=== PATIENT | female | born 1970 | race Caucasian/White ===

== ENCOUNTER 2024-10-18 12:17 | Inpatient (IN) | payer MEDICAID, SELFPAY ==
[2024-10-18 12:30] VITALS: BP 115/78; PULSE 100; RESP 20; TEMP 37; O2SAT 98; BMI 22.4
[2024-10-18 12:59] LABS: Basophils # 0.1 10^3/uL (0.0-0.1); Basophils % 0.8 %; Eosinophils # 0.3 10^3/uL (0.0-0.8); Eosinophils % 5.1 %; Hematocrit 42.9 % (36-47); Lymphocytes # 2.7 10^3/uL (0.8-4.8); Lymphocytes % 44.6 %; Mean Corpuscular Hemoglobin 31.1 pg (27-33); Mean Corpuscular Volume 91.5 fl (85-98); Mean Platelet Volume 8.9 fL (7.4-10.4); Monocytes # 0.5 10^3/uL (0.2-0.9); Monocytes % 8.7 %; Neutrophils # 2.46 10^3/uL (1.8-7.7); Neutrophils % 40.5 %; Nucleated Red Blood Cells % 0 %; Platelet Count 203 10^3/cmm (157-399); Red Blood Count 4.69 10^6/uL (3.85-5.65); Red Cell Distribution Width 13.6 % (12.1-15.1); White Blood Count 6.08 10^3/uL (3.29-11.43)
[2024-10-18 13:18] LABS: Bilirubin Urine Negative (Negative); Blood Urine Negative (Negative); Glucose Urine UA Negative (Normal); Ketones Urine Negative (Negative); Leukocyte Esterase Urine Negative (Negative); Nitrate Urine Negative (Negative); Protein Urine Negative (Negative); Specific Gravity, Urine 1.004 (1.005-1.030); Urine Appearance Clear (CLEAR); Urine Color Yellow (Yellow); Urobilinogen Urine 0.2 mg/dL (Negative); pH Urine 5.5 (5-7)
[2024-10-18 13:23] LABS: Add Urine Microscopic? YES; Bacteria Urine None Seen /hpf; Hyaline Casts Urine 0-4 /lpf; RBC Urine 0-2 /hpf (0-2); Squamous Epithelial Cell Urine 0-5 /hpf (0-5); WBC Urine 0-5 /hpf (0-5)
[2024-10-18 13:24] LABS: Amphetamines Screen Urine Negative (Negative); Barbiturates Screen Urine Negative (Negative); Benzodiazepines Screen Urine Negative (Negative); Cocaine Screen Urine Negative (Negative); Opiate Screen Urine Negative (Negative); PCP Screen Urine Negative (Negative); THC Screen Urine Negative (Negative)
[2024-10-18 13:35] LABS: Alanine Aminotransferase 20 U/L (0-33); Albumin Level 4.4 g/dL (3.5-5.2); Alkaline Phosphatase 122 U/L (35-105); Aspartate Amino Transferase 16 U/L (0-32); Blood Urea Nitrogen 14 mg/dL (6-20); Calcium 9.9 mg/dL (8.5-10.5); Carbon Dioxide 23 mmol/L (22-29); Chloride 104 mmol/L (98-107); Creatinine Clr Calc Pharmacy 100.4882; Globulin 2.7 g/dL (1.3-4.6); Glomerular Filtration Rate 103.4 mL/min (90-130); Glucose 91 mg/dL (65-115); Osmolality Calculated 288 mOsm/kg (285-295); Sodium 139 mmol/L (136-145); Thyroid Stimulating Hormone 1.77 uIU/mL (0.27-4.20); Total Bilirubin 0.2 mg/dL (0.15-1.2); Total Protein 7.1 g/dL (6.6-8.7)
[2024-10-18 13:36] LABS: Acetaminophen < 5.0 ug/mL (10-30); Anion Gap 16.2 (5-19); Potassium 4.2 mmol/L (3.5-5.1); Salicylate < 0.3 mg/dL (3-10)
[2024-10-18 13:42] LABS: Add Urine Culture? No
[2024-10-18] MEDS: diphenhydrAMINE 50 mg/mL SDV 1mL IM (14:00)
[2024-10-18] MEDS: haloperidol inj 5 mg/mL INJ 1 mL IM (14:00)
--- NOTE | 2024-10-18 14:00 | PC.NURSE ---
Ativan administrations delayed d/t insufficient amount in Pyxis, pharmacy notified @[id number]
--- NOTE | 2024-10-18 14:01 | PC.PHAR ---
Patient states she was on other medication at her old Pharmacy and it worked well for her . 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 [facility] did state the only thing different she had was in March 2024 patient was prescribed Vraylar 3mg . Patient only had it the one time , No other fills for it
--- NOTE | 2024-10-18 14:07 | PC.PHAR ---
Patient states that sometimes she smokes a joint . That is isn't legal yet so she doesn't want to say she does,
--- NOTE | 2024-10-18 14:16 | W.ED.PSYCHS ---
HPI - Psych General: Chief Complaint: Psychiatric Symptoms Stated Complaint: visual/auditory hallucinations Time Seen by Provider: 10/18/24 12:29 History of Present Illness: This patient is a 54-year-old white female who presents to the emergency department stating that she has been hallucinating. She states she has been seeing things that are not there. She has also been hearing things. She states she has had thoughts of harming herself. She states she does have a history of schizophrenia, depression and anxiety. She is not sure if she has been taking her medications. Associated symptoms: Reports auditory hallucinations, visual hallucinations, depression and suicidal ideation Related Data Home Medications ?Medication ?Instructions ?Recorded ?Confirmed acetaminophen 500 mg tablet 1,500 mg PO Q6H PRN Fever Or Pain 10/18/24 10/18/24 (Tylenol Extra Strength) hydroxyzine HCl 25 mg tablet 25 mg PO TID PRN Anxiety 10/18/24 10/18/24 levothyroxine 50 mcg tablet 50 mcg PO QAM 10/18/24 10/18/24 olanzapine 15 mg tablet 15 mg PO BEDTIME 10/18/24 10/18/24 zolpidem 5 mg tablet 5 mg PO BEDTIME PRN Insomnia 10/18/24 10/18/24 Allergies Allergy/AdvReac Type Severity Reaction Status Date / Time amoxicillin Allergy Severe ALGY-Difficulty Verified 10/18/24 12:46 Breathing Review of Systems General: Reports: 10 or more systems reviewed and unremarkable except in HPI and below Psych: Reports: anxiety, depression, paranoia, visual hallucinations, auditory hallucinations and suicidal ideation Physical Exam Const: COMMON NORMALS: no acute distress, patient oriented x3 and no limitations GENERAL APPEARANCE: cooperative and comfortable HENMT: COMMON NORMALS: normocephalic, atraumatic, Normal nasal mucous membranes and turbinates present, moist oral mucous membranes and oropharynx normal HEAD & SCALP: normal to inspection, normocephalic and atraumatic FACE & SINUS: normal facial exam NOSE: Normal nasal mucous membranes and turbinates present Eye: COMMON NORMALS: Equal, round and reactive pupils present, EOMs intact bilaterally and conjunctivae normal GENERAL EYE: appearance normal, both eyes and all related structures CONJUNCTIVA: Yes conjunctivae normal PUPIL: Yes Equal, round and reactive pupils present Neck/C-Spine: COMMON NORMALS: supple and no JVD Chest: COMMONS NORMALS: normal inspection of the chest Resp: COMMON NORMALS: normal respiratory effort and clear to auscultation bilaterally AUSCULTATION: clear to auscultation bilaterally Cardio: COMMON NORMALS: no JVD, regular rate, regular rhythm, No gallops present (Cardio), No murmurs present (Cardio) and No rub (Cardio) RATE: regular rate RHYTHM: regular rhythm GI: COMMON NORMALS: Normal to inspection, nondistended, normoactive bowel sounds present, Soft to palpation and non-tender AUSCULTATION: Yes normoactive bowel sounds PALPATION: Yes Soft to palpation : COMMON NORMALS: Yes no CVA tenderness BLADDER/KIDNEY EXAM: Yes no CVA tenderness Back/Pelvis: COMMON NORMALS: no CVA tenderness and thoracic and lumbar spine normal to inspection Extremity: COMMON NORMALS: normal to inspection Neuro: COMMON NORMALS: patient oriented x3 and CN's II-XII intact bilaterally Psych: COMMON NORMALS: cooperative and speech normal APPEARANCE: Yes grossly normal ATTITUDE: Yes paranoid and Yes Guarded attititude/behavior present ACTIVITY/MOTOR BEHAVIOR: Yes Avoids eye contact (attititude/behavior) SPEECH: Yes normal speech MOOD & AFFECT: Yes anxious and Yes irritable ATTENTION/CONCENTRATION: Yes attention grossly intact MEMORY/COGNITION: Yes memory grossly intact Skin: COMMON NORMALS: no rashes or lesions noted, turgor normal and no jaundice GENERAL SKIN EXAM: no rashes or lesions noted and turgor normal Course Vital Signs: Vital signs: Vital Signs Temperature 98.6 F 10/18/24 12:30 Pulse Rate 100 10/18/24 12:30 Respiratory Rate 20 H 10/18/24 12:30 Blood Pressure 115/78 10/18/24 12:30 Pulse Oximetry 98 10/18/24 12:30 Oxygen Delivery Me thod Room Air 10/18/24 12:30 MDM - Psych Medical Decision Making CBC and CMP were normal. TSH 1.77. Urinalysis normal. Urine drug screen negative. Talk screen negative. Patient will need to be admitted to the psychiatric unit since she is currently psychotic. She has likely been off of her antipsychotic medications. I discussed the case with Dr. Owusu, psychiatrist. He has accepted the patient for admission. She will be sent to the Neuropsych Unit shortly. She is stable. Lab Data 10/18/24 12:54 10/18/24 12:54 Laboratory Results WBC 6.08 10^3/uL (3.29-11.43) 10/18/24 12:54 RBC 4.69 10^6/uL (3.85-5.65) 10/18/24 12:54 Hgb 14.60 g/dL (11.27-16.99) 10/18/24 12:54 Hct 42.9 % (36-47) 10/18/24 12:54 MCV 91.5 fl (85-98) 10/18/24 12:54 MCH 31.1 pg (27-33) 10/18/24 12:54 MCHC 34.0 g/dL (30-55) 10/18/24 12:54 RDW 13.6 % (12.1-15.1) 10/18/24 12:54 Plt Count 203 10^3/cmm (157-399) 10/18/24 12:54 MPV 8.9 fL (7.4-10.4) 10/18/24 12:54 Neut % (Auto) 40.5 % 10/18/24 12:54 Lymph % (Auto) 44.6 % 10/18/24 12:54 [place] % (Auto) 8.7 % 10/18/24 12:54 Eos % (Auto) 5.1 % 10/18/24 12:54 Baso % (Auto) 0.8 % 10/18/24 12:54 Neut # (Auto) 2.46 10^3/uL (1.8-7.7) 10/18/24 12:54 Lymph # (Auto) 2.7 10^3/uL (0.8-4.8) 10/18/24 12:54 [place] # (Auto) 0.5 10^3/uL (0.2-0.9) 10/18/24 12:54 Eos # (Auto) 0.3 10^3/uL (0.0-0.8) 10/18/24 12:54 Baso # (Auto) 0.1 10^3/uL (0.0-0.1) 10/18/24 12:54 Nucleated RBC % (auto) 0 % 10/18/24 12:54 Nucleated RBCs # 0.0 /100WBC 10/18/24 12:54 Sodium 139 mmol/L (136-145) 10/18/24 12:54 Potassium 4.2 mmol/L (3.5-5.1) 10/18/24 12:54 Chloride 104 mmol/L (98-107) 10/18/24 12:54 Carbon Dioxide 23 mmol/L (22-29) 10/18/24 12:54 Anion Gap 16.2 (5-19) 10/18/24 12:54 BUN 14 mg/dL (6-20) 10/18/24 12:54 Creatinine 0.6 mg/dL (0.5-0.9) 10/18/24 12:54 GFR Calculation 103.4 mL/min (90-130) 10/18/24 12:54 Glucose 91 mg/dL (65-115) 10/18/24 12:54 Calculated Osmolality 288 mOsm/kg (285-295) 10/18/24 12:54 Calcium 9.9 mg/dL (8.5-10.5) 10/18/24 12:54 Total Bilirubin 0.2 mg/dL (0.15-1.2) 10/18/24 12:54 AST 16 U/L (0-32) 10/18/24 12:54 ALT 20 U/L (0-33) 10/18/24 12:54 Alkaline Phosphatase 122 U/L (35-105) H 10/18/24 12:54 Total Protein 7.1 g/dL (6.6-8.7) 10/18/24 12:54 Albumin 4.4 g/dL (3.5-5.2) 10/18/24 12:54 Globulin 2.7 g/dL (1.3-4.6) 10/18/24 12:54 TSH 1.77 uIU/mL (0.27-4.20) 10/18/24 12:54 Urine Color Yellow (Yellow) 10/18/24 13:00 Urine Appearance Clear (CLEAR) 10/18/24 13:00 Urine pH 5.5 (5-7) 10/18/24 13:00 Ur Specific [place] 1.004 (1.005-1.030) L 10/18/24 13:00 Urine Protein Negative (Negative) 10/18/24 13:00 Urine Glucose (UA) Negative (Normal) 10/18/24 13:00 Urine Ketones Negative (Negative) 10/18/24 13:00 Urine Blood Negative (Negative) 10/18/24 13:00 Urine Nitrate Negative (Negative) 10/18/24 13:00 Urine Bilirubin Negative (Negative) 10/18/24 13:00 Urine Urobilinogen 0.2 mg/dL (Negative) 10/18/24 13:00 Ur Leukocyte Esterase Negative (Negative) 10/18/24 13:00 Urine RBC 0-2 /hpf (0-2) 10/18/24 13:00 Urine WBC 0-5 /hpf (0-5) 10/18/24 13:00 Ur Squamous Epith Cells 0-5 /hpf (0-5) 10/18/24 13:00 Amorphous Sediment Not Reportable 10/18/24 13:00 Urine Bacteria None seen /hpf (NONE) 10/18/24 13:00 Hyaline Casts 0-4 /lpf H 10/18/24 13:00 Salicylates < 0.3 mg/dL (3-10) L 10/18/24 12:54 Urine Opiates Screen Negative ng/mL (Negative) 10/18/24 13:00 Acetaminophen < 5.0 ug/mL (10-30) L 10/18/24 12:54 Ur Barbiturates Screen Negative ng/mL (Negative) 10/18/24 13:00 Ur Phencyclidine Scrn Negative ng/mL (Negative) 10/18/24 13:00 Ur Amphetamines Screen Negative ng/mL (Negative) 10/18/24 13:00 U Benzodiazepines Scrn Negative ng/mL (Negative) 10/18/24 13:00 Urine Cocaine Screen Negative ng/mL (Negative) 10/18/24 13:00 U Marijuana (THC) Screen Negative ng/mL (Negative) 10/18/24 13:00 No radiology studies performed this visit Discharge Plan Discharge Patient Disposition: Admitted As Inpatient Clinical Impression: Acute psychosis, Chronic schizophrenia Condition: Stable Coding Level of Care Code ED [employer] [employer]
[2024-10-18] MEDS: LORazepam 1 MG/0.5 ML injection 2 MG IM (14:20)
[2024-10-18 14:59] VITALS: BP 118/78; PULSE 88; O2SAT 98
--- NOTE | 2024-10-18 15:12 | PC.NURSE ---
IV removed prior to transport to NPU
[2024-10-18 15:25] VITALS: BP 134/87; PULSE 88; RESP 16; TEMP 36.8; O2SAT 95
--- NOTE | 2024-10-18 15:49 | PC.ADMIT ---
[address] Admission Note: The patient,Sadie Gasca,54 y/o, was given written information regarding hospital policies, unit procedures and contact persons. Patient's smoking status: . Vital Signs - 8 hr 10/18/24 12:30 10/18/24 14:59 10/18/24 15:25 Temperature 98.6 F 98.3 F Pulse Rate 100 88 88 Respiratory Rate 20 H 16 Blood Pressure 115/78 118/78 134/87 Pulse Oximetry 98 98 95 Oxygen Delivery Method Room Air Room Air 10/18/24 15:30 Temperature Pulse Rate Respiratory Rate Blood Pressure Pulse Oximetry Oxygen Delivery Method Room Air Pt. came into ER reporting visual and auditory hallucinations. Pt. says she has had Schizophrenia since the age of 10, but denies in or out pt. phych tx. Pt. states she rents the upstairs from her brother. Pt. states both parents was alcoholics. States she had 2 brothers commit suicide about 9 months ago. Pt. is admitted on voluntary admission.
[2024-10-18 19:44] VITALS: BP 109/73; PULSE 92; RESP 18; TEMP 36.6; O2SAT 94
[2024-10-18] MEDS: OLANZapine 10 mg TABLET 15 MG PO (22:06)
[2024-10-19] MEDS: levothyroxine 50 mcg Tablet PO (05:55)
[2024-10-19] MEDS: nicotine 21 mg Patch 1 PATCH TRANSDERMA (06:12)
[2024-10-19 06:31] VITALS: BP 91/66; PULSE 63; RESP 18; TEMP 36.6; O2SAT 94
[2024-10-19] MEDS: hyDROXYzine 25 mg Capsule 50 MG PO ×2 (10:53→19:00)
[2024-10-19] MEDS: OLANZapine 5 mg ODT PO ×2 (11:56→20:21)
[2024-10-19 14:00] VITALS: BP 104/72; PULSE 104; RESP 16; TEMP 36.6; O2SAT 99
--- NOTE | 2024-10-19 15:12 | W.PM.NPUH&PS ---
Providers/Chief Complaint Admitting Physician: Juan M Hubbard MD Chief Complaint: visual/auditory hallucinations HPI NPU History of Present Illness Sadie Gasca is a 54 year old female who arrives here today on the neuropsychiatric unit after presenting to the emergency department stating that she has been hearing voices that are telling her to harm herself. She reports that she has been diagnosed with schizophrenia and reports that she has had problems with auditory hallucinations for the past 40 years. She reports that she had not been on medications until approximately 2 to 3 days ago with medications being prescribed for many years prior to that time. She reports that she has been having racing thoughts and increased depression. She reports that she has been overwhelmed by these voices. She reports that she often feels as if others can read her mind. She reports that she has been here in [place] for the past month as she moved from [place] to help her brother who had been recently injured and needed additional support in the home. She reports that she has been on disability for her schizophrenia for the past 4 years and reported that she had a significant breakdown after the of her brother and 3 months later her mother. She endorses a prior history of manic episodes with reports of decreased need for sleep, racing thoughts, increased irritability and reports of increased goal-directed behavior. She reports that her thoughts have been racing more frequently. She had reported having a good response to lithium for many years stating that she was able-bodied and able to work while taking lithium until 2021. She was uncertain as to why that medicine was discontinued as she reported no significant side effect leading to its discontinuation. She reports that she has been crying more frequently and reported that the voices have been loud and prominent telling her to harm herself. She denies any illicit substance use or alcohol abuse currently. She does report having problems with memory and concentration. She endorses having considerable anxiety and states that her anxiety has been more prominent with the increased intensity and frequency of her auditory hallucinations. She reports that she has not been able to sleep for several days despite taking her Ambien. She reports that her thoughts are moving fast. She denied any PTSD symptoms. She denied any symptoms suggestive of obsessive-compulsive disorder. The patient had reported that she had been seen at urgent care clinic in [facility] through [facility] and had been prescribed her most recent medication regimen. Inpatient psychiatric history: She has a history of multiple inpatient hospitalizations she states beginning at the age of 10. She had endorsed a history of suicidal ideation. Outpatient psychiatric history: She reported to follow-up with a psychiatrist at [facility] in [place] for more than 10 years. She had reported a previous diagnosis of schizophrenia and anxiety. She was able to recall previous medication of lithium and Seroquel. She had reported no current psychotherapy and reports that she has not receiving any outpatient follow-up with a psychiatrist. Substance abuse history: She had reported a past history of polysubstance abuse but reports that she has not used any drugs or alcohol in several years. She had reported no history of inpatient or outpatient substance abuse treatment. Medical history: Hypothyroidism Surgical history: , tonsillectomy, right hip surgery, hysterectomy Allergies: Amoxicillin Medications: Levothyroxine 50 mcg daily, olanzapine 15 mg at night, Ambien 5 mg at night, hydroxyzine 25 mg 3 times a day Legal history: None Family psychiatric history: History of 3 completed suicides, history of alcoholism in both mother and father, history of methamphetamine abuse and sibling, history of depression in siblings. history: None Social history: She had reported no history of problems with learning. She had eventually earned her diploma and she had been born in [place] and grew up in [place]. She had reported having a turbulent childhood but did not wish to discuss any prior trauma history. She reported having been placed in foster care for a time period and states that she has 6 total siblings with 2 brothers that are . She had reported that she has not been but has several children who are all of adult age living independently in [place]. 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 She currently lives near [facility]. She is staying with her brother who resides with her. Meds NPU Home Medications ?Medication ?Instructions ?Recorded ?Confirmed ?Last Taken ?Type acetaminophen 500 mg tablet 1,500 mg PO Q6H PRN Fever Or Pain 10/18/24 10/18/24 10/17/24 21:00 History (Tylenol Extra Strength) hydroxyzine HCl 25 mg tablet 25 mg PO TID PRN Anxiety 10/18/24 10/18/24 10/17/24 20:00 History levothyroxine 50 mcg tablet 50 mcg PO QAM 10/18/24 10/18/24 10/17/24 20:00 History olanzapine 15 mg tablet 15 mg PO BEDTIME 10/18/24 10/18/24 Unknown History zolpidem 5 mg tablet 5 mg PO BEDTIME PRN Insomnia 10/18/24 10/18/24 10/15/24 History Allergies Allergy/AdvReac Type Severity Reaction Status Date / Time amoxicillin Allergy Severe ALGY-Difficulty Verified 10/18/24 12:46 Breathing Mental Status Exam MSE Comments: The patient appeared her stated age with a disheveled appearance and normal gait. She had intermittent eye contact and appeared in severe distress. She was tearful throughout the interview. Speech was increased in push, and normal in volume and spontaneity. There was no evidence of any abnormal involuntary motor movements, tics, or tremors appreciated. She appeared very distracted during the interview. Her mood was described as terrible. Her affect was dysphoric and mood-congruent. Her thought process was linear, logical, and goal-directed. She denied any suicidal or homicidal ideation although she reported that there was a voice that was telling her to hurt herself. She did at times appear to be responding to internal stimuli. There was some ideas of reference although no overt delusions were appreciated. She was alert and oriented to person and place but not date. Her recent and remote memory appeared grossly intact. Her insight is impaired. Her judgment was poor. Her impulse control appeared limited. Vitals/I&O/Wt Last Vital Signs Temp 97.9 F 10/19/24 06:31 Pulse 63 10/19/24 06:31 Resp 18 10/19/24 06:31 BP 91/66 10/19/24 06:31 Pulse Ox 94 10/19/24 06:31 O2 Del Method Room Air 10/18/24 15:30 Weight last 48 hrs Weight 63.049 kg Data NPU 10/18/24 12:54 10/18/24 12:54 A&P Assessment and plan (1) Schizoaffective disorder, bipolar type: (2) Chronic schizophrenia: Plan 54-year-old female with a history of chronic mental illness with a history of what appears to be schizoaffective disorder bipolar type although she is reporting schizophrenia currently reporting a lack of success with her medication regimen. Presence of hallucinations appear to be most disturbing to patient and she was willing to consider medications to target her mood symptoms as well as psychosis. #1.? Engage patient in individual milieu and group therapy. #2?? Recommend sober living treatment at the highest level of care to which the patient is willing to commit #3???Restart Synthroid, #4?? TO-15 minute checks? #5?? Will attempt to gather collateral information, including records from [facility]. Start [place] 150mg bid, and initiate Invega 3mg at night to target psychosis. Klonopin 1mg at night for sleep. PDMP PDMP Reviewed: Not Reviewed Involuntary Hold Information Hold Status: Date/Time Hold Expires: voluntary Attestations NPU Medical Necessity Statement*: Inpatient hospitalization is medically necessary and deemed to be the clinically appropriate intervention at this time. Medications will be adjusted and initiated as indicated.? The patient will be hospitalized for at least 2 midnights.? The patient?s likely length of stay is 4-6 days. ? Coding Level of Care Code Acute Code for [facility] Fwd Diagnoses Schizoaffective disorder, bipolar type F25.0 Chronic schizophrenia F20.9
--- NOTE | 2024-10-19 18:32 | PC.NURSE ---
PT CONTINUES TO WANT TO LEAVE, INFORMED DOCTOR, WHO FEELS PT IS NOT READY OR SAFE TO GO HOME AT THIS TIME. PT CONTINUES TO BE VERY ANXIOUS AND WITHDRAWN TO ROOM. DOCTOR INITIATING 96HOUR HOLD FOR PT SAFETY. INFORMED PT DAUGHTER NURY HERNÁNDEZ OF 96 HOUR HOLD BEING PLACED SHE WAS VERY THANKFUL FOR THAT. PT DAUGHTER STATES PT IS AN EX ADDICT WHO DRUG OF CHOICE BEING AMBIEN AND OPIOIDS.
[2024-10-19] MEDS: lithium carbonate 300 mg Capsule PO (18:54)
--- NOTE | 2024-10-19 19:21 | PC.NURSE ---
Pt was read her rights at this time. Security was present.
[2024-10-19] MEDS: paliperidone ER 3 mg Tablet PO (20:21)
[2024-10-19] MEDS: trazodone 50 mg Tablet PO (20:33)
[2024-10-19 20:40] VITALS: BP 124/76; PULSE 114; RESP 17; TEMP 36.7; O2SAT 98
[2024-10-20] MEDS: nicotine 2 mg Gum BUCCAL (01:11)
[2024-10-20 06:00] VITALS: BP 99/68; PULSE 109; RESP 17; TEMP 36.7; O2SAT 98
[2024-10-20] MEDS: nicotine 21 mg Patch 1 PATCH TRANSDERMA (08:50)
[2024-10-20] MEDS: hyDROXYzine 25 mg Capsule 50 MG PO (08:50)
[2024-10-20] MEDS: lithium carbonate 300 mg Capsule PO ×2 (08:51→17:40)
[2024-10-20] MEDS: OLANZapine 5 mg ODT PO (10:50)
--- NOTE | 2024-10-20 13:50 | P.NPUPN_ITS ---
Subjective NPU 2 Subjective: 54-year-old female with schizoaffective disorder admitted with presence of command auditory hallucinations. Patient had reported that she had felt a little better but reported that she was having difficulties with falling asleep last night. She had requested being switched back to Ambien. She had reported that she had been stable for nearly the last 1-1/2 years on Lybalvi. She had stated that this medication had not been authorized here in [place] and she was unable to continue this medication. The patient had been somewhat isolative on the milieu. She had continued to report that the voices were distracting to her and continued to state that she should kill herself. She continued to report that the voices were loud but reported that they were less frequent. Mental Status Exam 2 MSE Comments: The patient appeared her stated age with a disheveled appearance and normal gait. She had intermittent eye contact and appeared in moderate distress. Speech was normal in rate today and normal in volume and spontaneity. There was no evidence of any abnormal involuntary motor movements, tics, or tremors appreciated. She appeared less distracted during the interview. Her mood was described as a little better. Her affect was irritable and mood incongruent. Her thought process was linear, logical, and goal-directed. She denied any suicidal or homicidal ideation although she reported that there was a voice that was telling her to hurt herself. She did appear to be responding to internal stimuli. There was some ideas of reference although no overt delusions were appreciated. She was alert and oriented to person and place but not date. Her recent and remote memory appeared grossly intact. Her insight is impaired. Her judgment was poor. Her impulse control appeared limited. Vitals/I&O/Wt Last Vital Signs Temp 98.0 F 10/20/24 06:00 Pulse 109 H 10/20/24 06:00 Resp 17 10/20/24 06:00 BP 99/68 10/20/24 06:00 Pulse Ox 98 10/20/24 06:00 O2 Del Method Room Air 10/20/24 06:00 Data NPU 10/18/24 12:54 10/18/24 12:54 A&P Assessment and plan (1) Schizoaffective disorder, bipolar type: (2) Chronic schizophrenia: Plan 54-year-old female with a history of chronic mental illness with a history of what appears to be schizoaffective disorder bipolar type although she is reporting schizophrenia currently reporting a lack of success with her medication regimen. Presence of hallucinations appear to be most disturbing to patient and she was willing to consider medications to target her mood symptoms as well as psychosis. #1.? Engage patient in individual milieu and group therapy. #2?? Recommend sober living treatment at the highest level of care to which the patient is willing to commit #3???Restart Synthroid, #4?? TO-15 minute checks? #5?? Will attempt to gather collateral information, including records from [facility]. Continue lithium 300mg bid, and increase Invega 6mg at night to target psychosis. D/C Klonopin 1mg at night and restart ambien 5mg at patient's request for sleep. PDMP PDMP Reviewed: Not Reviewed Involuntary Hold Information 2 Hold Status: Date/Time Hold Expires: voluntary Attestations NPU 2 Medical Necessity Statement*: Inpatient hospitalization is medically necessary and deemed to be the clinically appropriate intervention at this time. Medications will be adjusted and initiated as indicated.? ? The patient?s likely length of stay is 4-6 days. ? Coding Level of Care Code Acute Code for [facility] Fwd Diagnoses Schizoaffective disorder, bipolar type F25.0 Chronic schizophrenia F20.9
[2024-10-20 14:00] VITALS: BP 158/90; PULSE 95; RESP 16; TEMP 36.8; O2SAT 98
[2024-10-20] MEDS: paliperidone ER 3 mg Tablet 6 MG PO (19:33)
[2024-10-20] MEDS: levothyroxine 50 mcg Tablet PO (19:34)
[2024-10-20 19:35] LABS: Glucose Point of Care 121 mg/dL (70-110)
[2024-10-20] MEDS: acetaminophen 325 mg Tablet 650 MG PO (20:00)
--- NOTE | 2024-10-20 20:09 | PC.NURSE ---
Patient with c/o feeling lightheaded over the last few minutes. She is alert and appropriate. She denies anxiety. Her heart rate is 128 apical. BP 121/75, T 98.3, Spo2 100% on room air. She denies chest pain and SOB. She verbalizes aching in the back of her neck. She has full ROM without increased pain. Patient denies having these symptoms previously. Physician notified.
[2024-10-20 20:13] VITALS: BP 121/75; PULSE 124; RESP 19; TEMP 36.8; O2SAT 100; BMI 25.3
[2024-10-20] MEDS: zolpidem 5 mg Tablet PO (20:43)
[2024-10-21 06:00] VITALS: BP 107/70; PULSE 109; RESP 18; TEMP 36.7; O2SAT 96
[2024-10-21] MEDS: lithium carbonate 300 mg Capsule PO ×2 (08:29→17:17)
[2024-10-21] MEDS: nicotine 4 mg lozenge MUCOUS MEM ×2 (08:29→10:42)
--- NOTE | 2024-10-21 10:27 | P.NPUPN_ITS ---
Subjective NPU 2 Subjective: 54-year-old female with schizoaffective disorder admitted with presence of command auditory hallucinations. The patient reported significant improvement with the combination of lithium and paliperidone. She had reported that she was much less distracted and stated that the voices telling him to her to harm herself had been nearly extinguished. She reported that she struggled with falling asleep but Ambien had been helpful. She reported no side effects from her medication at this time. Mental Status Exam 2 MSE Comments: The patient appeared her stated age with normal appearance, adequately groomed and normal gait. She had fair eye contact and appeared in mild distress. Speech was normal in rate today and normal in volume and spontaneity. There was no evidence of any abnormal involuntary motor movements, tics, or tremors appreciated. She was more engaged today. Her mood was described as good. Her affect was brighter and mood congruent. Her thought process was linear, logical, and goal-directed. She denied any suicidal or homicidal ideation. She did not appear to be responding to internal stimuli. There was no ideas of reference and no overt delusions were appreciated. She was alert and oriented to person and place and time today. Her recent and remote memory appeared grossly intact. Her insight is fair. Her judgment was improving. Her impulse control appeared guarded Vitals/I&O/Wt Last Vital Signs Temp 98.0 F 10/21/24 06:00 Pulse 109 H 10/21/24 06:00 Resp 18 10/21/24 06:00 BP 107/70 10/21/24 06:00 Pulse Ox 96 10/21/24 06:00 O2 Del Method Room Air 10/21/24 06:00 Weight last 48 hrs Weight 71.214 kg Data NPU 10/18/24 12:54 10/18/24 12:54 A&P Assessment and plan (1) Schizoaffective disorder, bipolar type: (2) Chronic schizophrenia: Plan 54-year-old female with a history of chronic mental illness with a history of what appears to be schizoaffective disorder bipolar type although she is reporting schizophrenia currently reporting a lack of success with her medication regimen. Presence of hallucinations appear to be most disturbing to patient and she was willing to consider medications to target her mood symptoms as well as psychosis. #1.? Engage patient in individual milieu and group therapy. #2?? Recommend sober living treatment at the highest level of care to which the patient is willing to commit #3???Restart Synthroid, #4?? TO-15 minute checks? #5?? Will attempt to gather collateral information, including records from [facility]. Continue lithium 300mg bid, and Invega 6mg at night to target psychosis. Continue ambien 5mg at patient's request for insomnia. PDMP PDMP Reviewed: Not Reviewed Involuntary Hold Information 2 Hold Status: Date/Time Hold Expires: voluntary Attestations NPU 2 Medical Necessity Statement*: Inpatient hospitalization is medically necessary and deemed to be the clinically appropriate intervention at this time. Medications will be adjusted and initiated as indicated.? ? The patient?s likely length of stay is 2-3 days. ? Coding Level of Care Code Acute Code for Chg Fwd Diagnoses Schizoaffective disorder, bipolar type F25.0 Chronic schizophrenia F20.9
[2024-10-21] MEDS: nicotine 21 mg Patch 1 PATCH TRANSDERMA (13:56)
[2024-10-21 14:00] VITALS: BP 107/68; PULSE 120; RESP 16; TEMP 36.6; O2SAT 99
[2024-10-21] MEDS: levothyroxine 50 mcg Tablet PO (20:07)
[2024-10-21] MEDS: paliperidone ER 3 mg Tablet 6 MG PO (20:07)
[2024-10-21] MEDS: zolpidem 5 mg Tablet PO (20:08)
[2024-10-21 20:11] VITALS: BP 109/67; PULSE 120; RESP 20; TEMP 36.8; O2SAT 98
[2024-10-21] MEDS: calcium carbonate 500 mg Chew Tablet 1000 MG PO (21:20)
[2024-10-22 06:00] VITALS: BP 110/73; PULSE 100; RESP 17; TEMP 36.6; O2SAT 97
[2024-10-22] MEDS: nicotine 4 mg lozenge MUCOUS MEM (06:19)
[2024-10-22] MEDS: OLANZapine 5 mg ODT PO (07:13)
[2024-10-22] MEDS: lithium carbonate 300 mg Capsule PO (07:13)
[2024-10-22] MEDS: nicotine 21 mg Patch 1 PATCH TRANSDERMA (08:29)
[2024-10-22] MEDS: calcium carbonate 500 mg Chew Tablet 1000 MG PO (13:04)
--- NOTE | 2024-10-22 13:18 | P.NPUDS_ITS ---
Diagnoses at Discharge Discharge Diagnosis (1) Schizoaffective disorder, bipolar type: Status: Acute (2) Chronic schizophrenia: Status: Chronic Reason for Visit Reason for Visit: visual/auditory hallucinations Brief History: History of Present Illness Sadie Gasca is a 54 year old female who arrives here today on the neuropsychiatric unit after presenting to the emergency department stating that she has been hearing voices that are telling her to harm herself. She reports that she has been diagnosed with schizophrenia and reports that she has had problems with auditory hallucinations for the past 40 years. She reports that she had not been on medications until approximately 2 to 3 days ago with medications being prescribed for many years prior to that time. She reports that she has been having racing thoughts and increased depression. She reports that she has been overwhelmed by these voices. She reports that she often feels as if others can read her mind. She reports that she has been here in [place] for the past month as she moved from [place] to help her brother who had been recently injured and needed additional support in the home. She reports that she has been on disability for her schizophrenia for the past 4 years and reported that she had a significant breakdown after the of her brother and 3 months later her mother. She endorses a prior history of manic episodes with reports of decreased need for sleep, racing thoughts, increased irritability and reports of increased goal-directed behavior. She reports that her thoughts have been racing more frequently. She had reported having a good response to lithium for many years stating that she was able-bodied and able to work while taking lithium until 2021. She was uncertain as to why that medicine was discontinued as she reported no significant side effect leading to its discontinuation. She reports that she has been crying more frequently and reported that the voices have been loud and prominent telling her to harm herself. She denies any illicit substance use or alcohol abuse currently. She does report having problems with memory and concentration. She endorses having considerable anxiety and states that her anxiety has been more prominent with the increased intensity and frequency of her auditory hallucinations. She reports that she has not been able to sleep for several days despite taking her Ambien. She reports that her thoughts are moving fast. She denied any PTSD symptoms. She denied any symptoms suggestive of obsessive-compulsive disorder. The patient had reported that she had been seen at urgent care clinic in [facility] through [facility] and had been prescribed her most recent medication regimen. Inpatient psychiatric history: She has a history of multiple inpatient hospitalizations she states beginning at the age of 10. She had endorsed a history of suicidal ideation. Outpatient psychiatric history: She reported to follow-up with a psychiatrist at [facility] in [place] for more than 10 years. She had reported a previous diagnosis of schizophrenia and anxiety. She was able to recall previous medication of lithium and Seroquel. She had reported no current psychotherapy and reports that she has not receiving any outpatient follow-up with a psychiatrist. Substance abuse history: She had reported a past history of polysubstance abuse but reports that she has not used any drugs or alcohol in several years. She had reported no history of inpatient or outpatient substance abuse treatment. Medical history: Hypothyroidism Surgical history: , tonsillectomy, right hip surgery, hysterectomy Allergies: Amoxicillin Medications: Levothyroxine 50 mcg daily, olanzapine 15 mg at night, Ambien 5 mg at night, hydroxyzine 25 mg 3 times a day Legal history: None Family psychiatric history: History of 3 completed suicides, history of alcoholism in both mother and father, history of methamphetamine abuse and sibling, history of depression in siblings. history: None Social history: She had reported no history of problems with learning. She had eventually earned her diploma and she had been born in [place] and grew up in [place]. She had reported having a turbulent childhood but did not wish to discuss any prior trauma history. She reported having been placed in foster care for a time period and states that she has 6 total siblings with 2 brothers that are . She had reported that she has not been but has several children who are all of adult age living independently in [place]. 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 She currently lives near [facility]. She is staying with her brother who resides with her. Hospital Course Hospital Course The patient presented initially with significant psychosis complaining of command auditory hallucinations. She had also described having difficulties with sleep disturbance and racing thoughts. She had previously reported having been placed on Lybalvi successfully but also reported having used lithium for many years with great success in managing her mood. Ultimately, lithium was initiated and targeted at a dose of 600 mg/day in divided doses. Furthermore Invega oral was initiated at 3 mg at night and titrated to a dose of 6 mg at n ight at the time of discharge. She showed tremendous improvement over the next 2 days on the combination of the these medications within near complete resolution in regards to psychotic symptoms and no complaints of sleep disturbance once Ambien was added. During the hospitalization, the patient had routine laboratory studies which were within normal limits except for a few outliers.? Additionally, there was a general medical evaluation which was also within normal limits and revealed no new acute processes.? At the time of discharge, lethality was denied and psychosis was resolving.? Mood and anxiety were well managed.? The patient endorsed a plan to avoid all drugs of abuse and follow up with the aftercare recommendations of the treatment team.? The patient was evaluated and deemed to be absent credible lethality and had achieved the maximum benefit from an inpatient hospitalization, and so was discharged. ?Patient was agreeable to having a lithium level completed later this week along with some basic labs including a complete metabolic panel and a urinalysis along with a lithium level. Involuntary Hold Information Hold Status: Date/Time Hold Expires: voluntary Mental Status Exam MSE Comments: The patient appeared her stated age with normal appearance, adequately groomed and normal gait. She had fair eye contact and appeared in no acute distress. She was friendly and cooperative at discharge. Speech was normal in rate today and normal in volume and spontaneity. There was no evidence of any abnormal involuntary motor movements, tics, or tremors appreciated. She was more engaged today. Her mood was described as good. Her affect was brighter and mood congruent. Her thought process was linear, logical, and goal-directed. She denied any suicidal or homicidal ideation. She did not appear to be responding to internal stimuli. There was no ideas of reference and no overt delusions were appreciated. She was alert and oriented to person and place and time today. Her recent and remote memory appeared grossly intact. Her insight is fair. Her judgment was improving. Her impulse control appeared better. Discharge Data Studies Completed and Pending: Laboratory Results WBC 6.08 10^3/uL (3.2 9-11.43) 10/18/24 12:54 RBC 4.69 10^6/uL (3.8 5-5.65) 10/18/24 12:54 Hgb 14.60 g/dL (11.27 -16.99) 10/18/24 12:54 Hct 42.9 % (36-47) 10/18/24 12:54 MCV 91.5 fl (85-98) 10/18/24 12:54 MCH 31.1 pg (27-33) 10/18/24 12:54 MCHC 34.0 g/dL (30-55) 10/18/24 12:54 RDW 13.6 % (12.1-15.1 ) 10/18/24 12:54 Plt Count 203 10^3/cmm (157 -399) 10/18/24 12:54 MPV 8.9 fL (7.4-10.4) 10/18/24 12:54 Neut % (Auto) 40.5 % 10/18/24 12:54 Lymph % (Auto) 44.6 % 10/18/24 12:54 Frederick % (Auto) 8.7 % 10/18/24 12:54 Eos % (Auto) 5.1 % 10/18/24 12:54 Baso % (Auto) 0.8 % 10/18/24 12:54 Neut # (Auto) 2.46 10^3/uL (1.8 -7.7) 10/18/24 12:54 Lymph # (Auto) 2.7 10^3/uL (0.8- 4.8) 10/18/24 12:54 Frederick # (Auto) 0.5 10^3/uL (0.2- 0.9) 10/18/24 12:54 Eos # (Auto) 0.3 10^3/uL (0.0- 0.8) 10/18/24 12:54 Baso # (Auto) 0.1 10^3/uL (0.0- 0.1) 10/18/24 12:54 Nucleated RBC % (a uto) 0 % 10/18/24 12:54 Nucleated RBCs # 0.0 /100WBC 10/18/24 12:54 Sodium 139 mmol/L (136-1 45) 10/18/24 12:54 Potassium 4.2 mmol/L (3.5-5 .1) 10/18/24 12:54 Chloride 104 mmol/L (98-10 7) 10/18/24 12:54 Carbon Dioxide 23 mmol/L (22-29) 10/18/24 12:54 Anion Gap 16.2 (5-19) 10/18/24 12:54 BUN 14 mg/dL (6-20) 10/18/24 12:54 Creatinine 0.6 mg/dL (0.5-0. 9) 10/18/24 12:54 GFR Calculation 103.4 mL/min (90- 130) 10/18/24 12:54 Glucose 91 mg/dL (65-115) 10/18/24 12:54 POC Glucose 121 mg/dL (70-110 ) H 10/20/24 19:29 Calculated Osmolal ity 288 mOsm/kg (285- 295) 10/18/24 12:54 Calcium 9.9 mg/dL (8.5-10 .5) 10/18/24 12:54 Total Bilirubin 0.2 mg/dL (0.15-1 .2) 10/18/24 12:54 AST 16 U/L (0-32) 10/18/24 12:54 ALT 20 U/L (0-33) 10/18/24 12:54 Alkaline Phosphata se 122 U/L (35-105) H 10/18/24 12:54 Total Protein 7.1 g/dL (6.6-8.7 ) 10/18/24 12:54 Albumin 4.4 g/dL (3.5-5.2 ) 10/18/24 12:54 Globulin 2.7 g/dL (1.3-4.6 ) 10/18/24 12:54 TSH 1.77 uIU/mL (0.27 -4.20) 10/18/24 12:54 Urine Color Yellow (Yellow) 10/18/24 13:00 Urine Appearance Clear (CLEAR) 10/18/24 13:00 Urine pH 5.5 (5-7) 10/18/24 13:00 Ur Specific Gravit y 1.004 (1.005-1.0 30) L 10/18/24 13:00 Urine Protein Negative (Negati ve) 10/18/24 13:00 Urine Glucose (UA) Negative (Normal ) 10/18/24 13:00 Urine Ketones Negative (Negati ve) 10/18/24 13:00 Urine Blood Negative (Negati ve) 10/18/24 13:00 Urine Nitrate Negative (Negati ve) 10/18/24 13:00 Urine Bilirubin Negative (Negati ve) 10/18/24 13:00 Urine Urobilinogen 0.2 mg/dL (Negati ve) 10/18/24 13:00 Ur Leukocyte Dannielle ase Negative (Negati ve) 10/18/24 13:00 Urine RBC 0-2 /hpf (0-2) 10/18/24 13:00 Urine WBC 0-5 /hpf (0-5) 10/18/24 13:00 Ur Squamous Epith Cells 0-5 /hpf (0-5) 10/18/24 13:00 Amorphous Sediment Not Reportable 10/18/24 13:00 Urine Bacteria None seen /hpf (N ONE) 10/18/24 13:00 Hyaline Casts 0-4 /lpf H 10/18/24 13:00 Salicylates < 0.3 mg/dL (3-10 ) L 10/18/24 12:54 Urine Opiates Scre en Negative ng/mL (N egative) 10/18/24 13:00 Acetaminophen < 5.0 ug/mL (10-3 0) L 10/18/24 12:54 Ur Barbiturates Sc reen Negative ng/mL (N egative) 10/18/24 13:00 Ur Phencyclidine S crn Negative ng/mL (N egative) 10/18/24 13:00 Ur Amphetamines Sc reen Negative ng/mL (N egative) 10/18/24 13:00 U Benzodiazepines Scrn Negative ng/mL (N egative) 10/18/24 13:00 Urine Cocaine Scre en Negative ng/mL (N egative) 10/18/24 13:00 U Marijuana (THC) Screen Negative ng/mL (N egative) 10/18/24 13:00 Vitals: Last Vital Signs Temp 97.9 F 10/22/24 06:00 Pulse 100 10/22/24 06:00 Resp 17 10/22/24 06:00 BP 110/73 10/22/24 06:00 Pulse Ox 97 10/22/24 06:00 O2 Del Method Room Air 10/22/24 06:00 Discharge Plan Discharge Patient Disposition: Home Condition: Stable Prescriptions: New lithium carbonate 300 mg Capsule 300 mg PO BID 30 Days Qty: 60 1RF paliperidone [Invega] 6 mg tablet extended release 24hr 6 mg PO 2100 30 Days Qty: 30 1RF Continued hydroxyzine HCl 25 mg tablet 25 mg PO TID PRN (Reason: Anxiety) zolpidem 5 mg tablet 5 mg PO BEDTIME PRN (Reason: Insomnia) acetaminophen [Tylenol Extra Strength] 500 mg Tablet 1,500 mg PO Q6H PRN (Reason: Fever Or Pain) levothyroxine 50 mcg tablet 50 mcg PO QAM 30 Days Qty: 30 1RF Discontinued olanzapine 15 mg tablet 15 mg PO BEDTIME Discharge Orders: Discharge Order (Routine); Ordered 10/22/24 Ordered By: Juan M Hubbard Other Ambulatory Orders: Complete Blood Count w/Auto (Routine) Timeframe: 1 Week Location: Determined by Patient Ordered By: Juan M Hubbard Comprehensive Metabolic Panel (Routine) Timeframe: 1 Week Location: Determined by Patient Ordered By: Juan M Hubbard [place] (Routine) Timeframe: 1 Week Facility: [facility] - Location: Lab - Main Lab Ordered By: Juan M Hubbard Thyroid Stimulating Hormone (Routine) Timeframe: 1 Week Location: Determined by Patient Ordered By: Juan M Hubbard Urinalysis (Routine) Timeframe: 1 Week Facility: [facility] - Location: Lab - Main Lab Ordered By: Juan M Hubbard Referrals: [facility] Miki Bolanos [Other] - 11/08/24 1:30 pm Referral Note: Assessment with Sarita Marcelino for [facility] services Lily Garcia FNP [Nurse Practitioner, Nurse Practitioner] - 10/31/24 1:00 pm Referral Note: Arrive 15 minutes early Discharge Diet: Usual diet Discharge Activity: Resume usual activity Patient Instructions: [place] (By mouth), Schizophrenia (DC), Opioid Safety Discharge Attestations NPU Time Spent in Discharge Care*: less than 30 min Specific Discharge Activities: Specific discharge activities: educating patient, discussing with rifle case repairer/social workers/dc planners and documenting/other paperwork Coding Level of Care Code Acute Code for Chg Fwd Diagnoses Schizoaffective disorder, bipolar type F25.0 Chronic schizophrenia F20.9
[2024-10-22 13:29] VITALS: BP 110/73; PULSE 100; RESP 17; TEMP 36.6; O2SAT 97
== END 2024-10-22 15:05 | disposition home or self-care (01) | DRG 885 ==
LOC: ER 14:13 → NP 14:57
PROVIDERS: Admitting Provider Psychiatry & Neurology Psychiatry; Emergency Provider Emergency Medicine; Visit Provider Psychiatry & Neurology Psychiatry
DX: F25.0 Schizoaffective disorder, bipolar type (principal); R45.851 Suicidal ideations; F41.9 Anxiety disorder, unspecified
CPT/HCPCS: 36415; 36416; 80053; 80306; 80307; 81001; 82962; 84443; 85025; 96372; 97150; 97165; 99285; J1200; J1630; J2060; J9999